=== PATIENT | male | born 1965 | race African-American/Black ===

== ENCOUNTER → 2018-09-08 | Outpatient (CLI) | payer BC ==
--- NOTE | 2018-09-08 14:15 | PCVCIMAG ---
EXAM: VENOUS DUPLEX LEFT LOWER EXTREMITY INDICATION: Leg pain and swelling. FINDINGS: Left leg: No thrombus in the common femoral, main femoral, or popliteal veins. These veins are compressible with phasic flow. Calf veins are unremarkable where seen. IMPRESSION: No evidence of deep venous thrombosis in the left lower extremity as detailed above. LOC:[id number]
--- NOTE | 2018-09-08 14:16 | PCVCIMAG ---
EXAM: LEFT LOWER EXTREMITY ARTERIAL DUPLEX INDICATION: Peripheral Arterial Disease. Leg pain. FINDINGS: Left Leg: Satisfactory arterial waveforms throughout the common/profunda/superficial femoral, popliteal, anterior tibial, peroneal, and posterior tibial arteries. No flow limiting stenosis seen. IMPRESSION: No flow limiting stenosis in the left lower extremity. LOC:[id number]
== END | disposition home or self-care (01) ==
LOC: EDBD → PCVCIMAG 12:46
PROVIDERS: ATTEND Nuclear Medicine Nuclear Cardiology
DX: I73.9 Peripheral vascular disease, unspecified (principal); M79.605 Pain in left leg; M79.89 Other specified soft tissue disorders; M54.42 Lumbago with sciatica, left side; G89.29 Other chronic pain
CPT/HCPCS: 93926; 93971